=== PATIENT | female | born 1950 | race Caucasian/White ===

== ENCOUNTER 2016-07-13 09:15 | Observation (INO) | payer OTHER ==
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
--- NOTE | 2016-07-13 09:37 | CPEKG ---
Heart Rate: 90 RR Interval: 667 P-R Interval: 168 QRSD Interval: 82 QT Interval: 380 QTC Interval: 465 P [place]: 25 QRS [place]: -6 T Wave [place]: 44 EKG Severity - ABNORMAL ECG - EKG Impression: SINUS RHYTHM EKG Impression: MULTIPLE VENTRICULAR PREMATURE COMPLEXES EKG Impression: LEFT VENTRICULAR HYPERTROPHY Electronically Signed By: Cole Mcdaniel 13-Jul-2016 09:48:48
[2016-07-13 09:55] LABS: % IMMATURE GRANULYOCYTES 0.3 % (0.0-1.1); ABSOLUTE IMMATURE GRANULOCYTES 0.02 10^3/uL (0.00-0.10); ADD DIFF? NO; ADD MORPH? NO; ADD SCAN? NO; ATYPICAL LYMPHOCYTE FLAG 10 (0-99); FRAGMENT RBC FLAG 0 (0-99); HEMATOCRIT 45.5 % (38.0-47.0); HEMOGLOBIN 15.7 g/dL (12.6-16.3); LEFT SHIFT FLG 0 (0-99); LIPEMIA HEMOLYSIS FLAG 90 (0-99); MEAN CELL HEMOGLOBIN 31.7 pg (27.9-34.1); MEAN CELL HEMOGLOBIN CONCENTR. 34.5 g/dL (32.4-36.7); MEAN CELL VOLUME 91.7 fL (81.5-99.8); MEAN PLATELET VOLUME 11.5 fL (8.7-11.7); PLATELET CLUMPS FLAG 10 (0-99); PLATELET COUNT 212 10^3/uL (150-400); RED BLOOD CELL COUNT 4.96 10^6/uL (4.18-5.33); RED CELL DISTRIBUTION WIDTH 12.4 % (11.5-15.2)
[2016-07-13 10:09] LABS: ANION GAP 12 mEq/L (8-16); CALCIUM 9.9 mg/dL (8.5-10.4); CARBON DIOXIDE 26 mEq/l (22-31); CHLORIDE 108 mEq/L (97-110); CREATININE 0.6 mg/dL (0.6-1.0); GLOMERULAR FILTRATION RATE > 60; GLUCOSE 106 mg/dL (70-100); POTASSIUM 4.2 mEq/L (3.5-5.2); SODIUM 146 mEq/L (134-144)
[2016-07-13 10:21] LABS: TROPONIN I < 0.012 ng/mL (0-0.034)
--- NOTE | 2016-07-13 10:48 | DX ---
PA and lateral chest. Clinical History: Chest Pain Comparison Study: None available. Findings: The lungs are clear. No pleural disease identified. Heart size is normal. Degenerative changes are present at the thoracolumbar junction, with mild kyphosis.. Impression: Negative chest.
[2016-07-13] MEDS ORDERED: ACETAMINOPHEN 325 MG TAB PO PRN (12:35)
[2016-07-13] MEDS ORDERED: D5W 1/2 NS 1,000 ML IV SCH (12:45)
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
[2016-07-13] MEDS ORDERED: GADOBUTROL 10 ML VIAL IVP ONE (14:28)
--- NOTE | 2016-07-13 15:32 | MR ---
MR Arteriogram of the [place] Clinical Indications: Evaluate for possible vascular occlusion. R29.818 Neurological changes strongl y suggesting intracerebral aneurysm. Technique: A uiof-rn-rrkzed gradient echo technique was used for thin axial images at the skull base for evaluation of major vessels of the [place]. Three-dimensional technique was used with a 30-degree gradient echo flip angle and a traveling saturation band. Images were manipulated by the radiologist at the computer workstation. Findings: The left posterior cerebral artery arises from the anterior circulation. 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 The anterior and middle cerebral arteries are widely patent. Distal internal carotid arteries are p atent. Distal vertebral arteries are patent as is the basilar artery. No evidence of occlusive vascul ar disease. Impression: 1. 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 2. No evidence of vascular occlusion.
--- NOTE | 2016-07-13 16:05 | MR ---
MRI of the Brain (Without Contrast) 07/13/2016 Clinical Indication: Evaluate for possible prior CVA.. Technique: T1-weighted images were acquired axially and sagittally from the foramen magnum to the ve rtex. Axial FLAIR, fast T2-weighted, and diffusion-weighted axial images were obtained without contr ast. Findings: The ventricles, cisterns, and sulci are normal without atrophy, hydrocephalus, midline tl ft, herniation, or epidural/subdural hematomas. No intracranial hemorrhage or masses. Diffusion-weigh dimple sequence demonstrates no acute infarct. Cerebellar tonsils are in normal position. Pituitary glan d is normal in size. Normal signal flow void in the superior sagittal sinus, basilar artery, and bila teral internal carotid arteries indicating patency. Paranasal sinuses and mastoid air cells are clear . Impression: Normal MRI of the brain without contrast.
--- NOTE | 2016-07-13 16:08 | MR ---
MR Angiogram of the Neck With Contrast Clinical Indications: Evaluate for vascular stenosis. Technique: After a preliminary timing bolus run, a three-dimensional vascular bsdt-ew-ulmljf study w as performed from the upper chest to the skull base, using a total of 10 mL of Gadavist intravenously . Images were manipulated by the radiologist at the computer workstation. Findings: The aortic arch has typical 3-vessel branching anatomy. The common carotid arteries and v ertebral arteries are patent. The common carotid bifurcations demonstrate no evidence of flow-limiti ng stenosis, occlusion, or dissection. Tortuosity of the internal carotid arteries is present bilater ally. The vertebral arteries are patent without evidence of obstruction or dissection. Impression: MRA of the cervical carotids and vertebrals demonstrate no evidence of flow-limiting sten osis, occlusion, or dissection. Measurements of carotid stenosis are based on the residual internal carotid diameter with [facility] Symptomatic Carotid Endarterectomy Trial (NASCET) based stenosis levels.
[2016-07-13] MEDS: ASPIRIN EC 81 MG TAB PO SCH (17:19)
[2016-07-13] MEDS ORDERED: METOPROLOL TARTRATE 25 MG TAB PO ONE (17:39)
[2016-07-13] MEDS ORDERED: hydrALAZINE 20 MG/ML VIAL IVP PRN (20:36)
[2016-07-13] MEDS ORDERED: PRAVASTATIN SODIUM 10 MG PO SCH (21:00)
[2016-07-13] MEDS ORDERED: LISINOPRIL 5 MG PO SCH (21:00)
[2016-07-13] MEDS ORDERED: PRAVASTATIN SODIUM 10 MG TAB PO SCH (21:00)
[2016-07-13] MEDS: LISINOPRIL 5 MG TAB PO SCH (21:08)
[2016-07-13] MEDS: METOPROLOL TARTRATE 25 MG TAB PO SCH (22:19)
[2016-07-14 05:26] LABS: ANION GAP 10 mEq/L (8-16); CARBON DIOXIDE 26 mEq/l (22-31); CHLORIDE 109 mEq/L (97-110); CREATININE 0.6 mg/dL (0.6-1.0); GLOMERULAR FILTRATION RATE > 60; GLUCOSE 91 mg/dL (70-100); MAGNESIUM 1.7 mg/dL (1.6-2.3); SODIUM 145 mEq/L (134-144)
[2016-07-14 05:28] LABS: % IMMATURE GRANULYOCYTES 0.3 % (0.0-1.1); ABSOLUTE IMMATURE GRANULOCYTES 0.02 10^3/uL (0.00-0.10); ADD DIFF? NO; ADD MORPH? NO; ADD SCAN? NO; ATYPICAL LYMPHOCYTE FLAG 0 (0-99); FRAGMENT RBC FLAG 0 (0-99); HEMATOCRIT 47.6 % (38.0-47.0); HEMOGLOBIN 16.5 g/dL (12.6-16.3); LEFT SHIFT FLG 0 (0-99); LIPEMIA HEMOLYSIS FLAG 90 (0-99); MEAN CELL HEMOGLOBIN 31.7 pg (27.9-34.1); MEAN CELL HEMOGLOBIN CONCENTR. 34.7 g/dL (32.4-36.7); MEAN CELL VOLUME 91.4 fL (81.5-99.8); MEAN PLATELET VOLUME 12.1 fL (8.7-11.7); PLATELET CLUMPS FLAG 10 (0-99); PLATELET COUNT 224 10^3/uL (150-400); RED BLOOD CELL COUNT 5.21 10^6/uL (4.18-5.33); RED CELL DISTRIBUTION WIDTH 12.6 % (11.5-15.2)
[2016-07-14] MEDS ORDERED: LEVOTHYROXINE 100 MCG PO SCH (06:00)
[2016-07-14] MEDS ORDERED: LEVOTHYROXINE 100 MCG TAB PO SCH (06:00)
[2016-07-14 08:24] VITALS: RESP 17
[2016-07-14] MEDS: LISINOPRIL 5 MG TAB PO SCH (08:27)
--- NOTE | 2016-07-14 10:17 | ECHO ---
[id number] + + [address] : : [place] [address] : : [phone] + Adult Echocardiographic Report + + :Name: MAHAMED BURT CStudy Date: 07/14/2016 08:02 AM : : Hospital Admission Number: [id number] Loc ation: 141: :: 1950 Gender: Female Height: 61 in : :Age: 65 yrs Race: UN Weight: 138 lb : :Reason For Study: eval for valvular abnormalities : : BSA: 1.6 me ters2 : :History: No previous : + + MMode/2D Measurements & Calculations IVSd: 1.2 cm RVDd: 3.2 cm FS: 31.0 % LVOT diam: 1.9 cm LVPWd: 1.2 cm LVIDd: 4.2 cm EDV(Teich): LVOT area: LVIDs: 2.9 cm 78.1 ml 2.8 cm2 ESV(Teich): 31.9 ml EF(Teich): 59.1 % LVLd ap4: 7.6 cm SV(MOD-sp4): EDV(MOD-sp4): 39.0 ml 69.0 ml LVLs ap4: 6.3 cm ESV(MOD-sp4): 30.0 ml EF(MOD-sp4): 56.5 % Normal Measurement Values: + + :LVIDd (3.5-5.7cm) IVSd (0.6-1.1cm) LVPWd (0.6-1.1cm) Aortic Root (2.0-3.7cm)Left Atrium (1.5-4.0cm): :LV Vol(d) (76-115ml) LV Vol(s) (29-48ml) Ejec Fraction (50-65%)PV Huber (0.6- 1.2m/s) TV Huber (0.4-1.0m/s) : :MV E Huber (0.8-1.0m/s)MV A Huber (0.3-1.0m/s)LVOT Huber (0.7-1.2m/s) Asc Ao Huber ( 0.9-1.8m/s) : + + Doppler Measurements & Calculations MV E max huber: MV V2 max: Ao V2 max: LV V1 max: 52.1 cm/sec 72.1 cm/sec 116.0 cm/sec 79.0 cm/sec MV A max huber: MV max PG: Ao max PG: LV V1 max P.5 cm/sec 2.1 mmHg 5.4 mmHg 2.5 mmHg MV E/A: 0.63 MV V2 mean: Ao mean PG: LV V1 mean PG: MV dec time: 47.4 cm/sec 3.0 mmHg 1.0 mmHg 0.22 sec MV mean PG: Ao V2 mean: LV V1 mean: 1.0 mmHg 75.2 cm/sec 49.1 cm/sec MV V2 VTI: Ao V2 VTI: 24.9 cmLV V1 VTI: 18.1 cm 25.1 cm ZAKIA(I,D): 2.1 cm2 MVA(VTI): 2.0 cm2 ZAKIA(V,D): 1.9 cm2 SV(LVOT): 51.3 ml PA V2 max: TR max huber: Pulm Sys Huber: 62.1 cm/sec 178.0 cm/sec 31.2 cm/sec PA max PG: TR max PG: Pulm Sanchez Huber: 1.5 mmHg 12.7 mmHg 25.3 cm/sec RAP systole: Pulm A Revs Huber: 10.0 mmHg 25.6 cm/sec RVSP(TR): Pulm A Revs Dur: 22.7 mmHg 0.12 sec Pulm S/D: 1.2 Left Ventricle The left ventricle is normal in size and function. There is normal left ventricular wall thickness. Ejection Fraction = 60%. There is Doppler evidence for diastolic dysfunction. No regional wall motion abnormalities noted. Right Ventricle The right ventricle is normal in size and function. Atria The left atrial size is normal. Right atrial size is normal. The interatrial septum is intact with no evidence for an atrial septal defect. Mitral Valve The mitral valve is normal in structure and function. There is no mitral valve stenosis. There is no mitral regurgitation noted. Tricuspid Valve The tricuspid valve is normal in structure and function. There is no tricuspid stenosis. There is trace to mild tricuspid regurgitation. Right ventricular systolic pressure is normal. Aortic Valve The aortic valve is normal in structure and function. There is no aortic stenosis. Mild aortic regurgitation. Pulmonic Valve The pulmonic valve is normal in structure and function. There is no pulmonic valvular stenosis. There is no pulmonic valvular regurgitation. Great Vessels The aortic root is normal size. Pericardium/Pleural There is a fat pad seen. There is no pericardial effusion. Conclusion A complete two-dimensional transthoracic echocardiogram was performed (2D, M-mode, Doppler and color flow Doppler). The left ventricle is normal in size and function. Ejection Fraction = 60%. There is Doppler evidence for diastolic dysfunction. There is trace to mild tricuspid regurgitation. Right ventricular systolic pressure is normal. The aortic valve is normal in structure and function. Mild aortic regurgitation. Final Reading Physician: Curtis Persaud signed on 07/14/2016 10:16 AM Ordering Physician: Finn Cam Performed By: Kirstin Segura
--- NOTE | 2016-07-14 11:18 | NM ---
Nuclear Medicine Myocardial Perfusion Scan Clinical History: 65-year-old female recently admitted with chest pain, a syncopal event, and hyperte nsive urgency. She has had 3 sequential negative serum troponin levels. Rule out myocardial ischemia. Radiopharmaceutical: 10.7 mCi of IV technetium 99m sestamibi (rest portion), and 25.7 of IV technetiu m 99m sestamibi (stress portion). Technique: A Romie protocol exercise tolerance test was performed, with an exercise time of 8 minutes and 31 seconds, achieving a peak heart rate of 144 bpm, which is 92% MPHR. The peak blood pressure i s 170/90, and 9.8 METs were achieved. After the respective rest and stress sequences, images were acq uired tomographically and reconstructed along the standard cardiac axes. Study was gated and reviewed on the PACS computer workstation using [employer] [facility] software. Comparison study: None. Findings: The post-stress and rest sequences normal left ventricular myocardial perfusion with the ex ception of a small fixed defect at the apex, probably representing an apical cleft rather than an inf arct, as there is no corresponding wall motion abnormality. The computer-generated LVEF is calculated at 54%. The left ventricular cavity size is normal. Impression: There is no scintigraphic evidence of myocardial ischemia.
[2016-07-14 11:27] VITALS: BP 145/81; PULSE 74; TEMP 98.1; O2SAT 95
[2016-07-14] MEDS: METOPROLOL TARTRATE 25 MG TAB PO SCH (11:27)
[2016-07-14] MEDS: ASPIRIN EC 81 MG TAB PO SCH (12:23)
--- NOTE | 2016-07-14 17:15 | GDS ---
[f rep st] DISCHARGE SUMMARY DISCHARGE DIAGNOSES: Include: 1. Syncope acute. 2. Chest pain. 3. Hypertensive urgency. 4. Acute dysarthria. 5. Migraines. HISTORY OF PRESENT ILLNESS: A 65-year-old female, who presented with acute syncopal episode and dysa rthria. For details of the patient's initial presentation, please see the history and physical dated 07/13/2016. CONSULTATIVE SERVICES ON THIS PATIENT: Include cardiology. PROCEDURES ON THIS PATIENT: On 07/13/2016, patient had an MRI of the brain that was normal. On 07/02, patient had a transthoracic echocardiogram that showed normal LV size and function, ejection fraction estimated at 60%. On 07/14/2016, patient had a myocardial perfusion scan that showed no paras dence of ischemia. On 07/13/2016, patient had an MRA of the neck and brain that showed no evidence o f flow-limiting stenoses, occlusion or dissection. HOSPITAL COURSE BY ISSUE: 1. Acute syncope. Patient was admitted to the [facility], monitored overnight, thorough cardiac workup wi echo, stress testing and telemetry monitoring. Patient's heart rates remained normal. Blood pres sures trended after initial hospitalization in the 130s to 140s. The patient is being discharged wit h outpatient [facility] followup on 07/15/2016, where they can initiate discussions related to mon itoring with Holter, loop recorders, and additional medications for blood pressure control. 2. Hypertensive urgency. Suspect this may have been related acutely to the stress of her presentati on. She was treated with her home dosing of lisinopril and a single dose of beta-blockade, which cau sed profound bradycardia without much assistance in blood pressure control. This will not be continu ed at disposition as it certainly will complicate patient's presentation with syncope. [facility] will follow her blood pressures post disposition. 3. Acute dysarthria. Patient did have workup for stroke with negative brain MRI, MRA and echo. Lolly pect again this may have been related to the acute syncopal presentation and not a separate cerebrova scular event. 4. Baseline hypertension. As above, the patient will be continued on her home dosing of antihyperte nsives with anticipated titration by [facility] in the outpatient setting. 5. Migraines. No changes were made to her outpatient regimen. MEDICATIONS AT THE TIME OF DISPOSITION: Please reference medication reconciliation printed on 2016. FOLLOWUP APPOINTMENTS: Include with [facility] on 07/15/2016. PENDING STUDIES AT THE TIME OF THIS DICTATION: None. TIME SPENT: I spent greater than 30 minutes in the planning and coordination of this discharge. /[id number]/MODL
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
== END 2016-07-14 13:01 | disposition home or self-care (01) ==
LOC: MERGE 11:22 → F1N 12:21
PROVIDERS: ADMIT Internal Medicine; ATTEND Internal Medicine
DX: R55 Syncope and collapse (principal); R07.9 Chest pain, unspecified; I16.0 Hypertensive urgency; R47.1 Dysarthria and anarthria
CPT/HCPCS: 70544; 70549; 70551; 71020; 93005; G0378; A9585; J0360

== ENCOUNTER → 2016-08-06 | Outpatient (CLI) | payer OTHER ==
--- NOTE | 2016-08-06 15:20 | CPEEG ---
[f rep st] ELECTROENCEPHALOGRAM EEG. DATE OF STUDY: 08/06/2016 DATE OF INTERPRETATION: 08/06/2016 INTERPRETATION: Normal EEG during wakefulness and sleep. There were no potentially epileptogenic a bnormalities present in the recording. REPORT: This EEG contains 10 hertz alpha to the posterior head regions. There was no abnormal acti vation at rest, during photic stimulation or hyperventilation. The patient became drowsy and fell a sleep during the study. There was no abnormal activation during drowsiness, sleep, or during times of arousal. /[id number]/MODL
== END ==
LOC: FCPNEURO 10:46
PROVIDERS: ATTEND Psychiatry & Neurology Neurology
DX: I67.1 Cerebral aneurysm, nonruptured (principal); G43.109 Migraine with aura, not intractable, without status migrainosus; R55 Syncope and collapse

== ENCOUNTER 2016-08-07 13:08 | Day surgery (SDC) | payer OTHER ==
[2016-08-07] MEDS ORDERED: MIDAZOLAM 2 MG/2 ML VIAL ONE (14:42)
[2016-08-07] MEDS ORDERED: fentaNYL 100 MCG/2 ML INJ ONE (14:43)
[2016-08-07] MEDS ORDERED: IOPAMIDOL (ISOVUE-300) 100 ML BTL IV ONE (15:36)
== END 2016-08-07 19:11 | disposition home or self-care (01) ==
LOC: FIMAGING 13:08
PROVIDERS: ATTEND Neurological Surgery
PROC: B31F1ZZ Fluoroscopy of Left Vertebral Artery using Low Osmolar Contrast (ICD-10-PCS; principal; 2016-08-07)
PROC: B3181ZZ Fluoroscopy of Bilateral Internal Carotid Arteries using Low Osmolar Contrast (ICD-10-PCS; principal; 2016-08-07)
PROC: B3151ZZ Fluoroscopy of Bilateral Common Carotid Arteries using Low Osmolar Contrast (ICD-10-PCS; principal; 2016-08-07)
DX: Z03.89 Encounter for observation for other suspected diseases and conditions ruled out (principal); I10 Essential (primary) hypertension
CPT/HCPCS: 36223; 36224; 36226; 99152; C1769; J1644; J2250; J3010; Q9967

== ENCOUNTER 2016-10-06 06:57 | Day surgery (SDC) | payer OTHER, MEDICAID ==
[2016-10-06] MEDS ORDERED: MIDAZOLAM 2 MG/2 ML VIAL IVP ONE (07:07)
[2016-10-06] MEDS ORDERED: NS 1,000 ML IV ONE (07:07)
[2016-10-06] MEDS ORDERED: HEPARIN 10,000 UNIT/10 ML MDV ONE ×2 (07:22→08:00)
[2016-10-06] MEDS ORDERED: LIDOCAINE 1% 30 ML SDV ONE ×2 (07:22→08:00)
[2016-10-06] MEDS ORDERED: ISOPROTERENOL HCL 0.2 MG/ML 5ML AMP ONE ×2 (07:23→08:00)
[2016-10-06] MEDS ORDERED: BUPIVACAINE 0.5% 30 ML SDV ONE ×2 (07:23→08:00)
--- NOTE | 2016-10-06 07:28 | CPEKG ---
Heart Rate: 67 RR Interval: 896 P-R Interval: 180 QRSD Interval: 76 QT Interval: 404 QTC Interval: 427 P [place]: 38 QRS [place]: 16 T Wave [place]: 48 EKG Severity - NORMAL ECG - EKG Impression: SINUS RHYTHM Electronically Signed By: Maico Seay 06-Oct-2016 16:51:21
[2016-10-06 07:47] LABS: ADD DIFF? NO; ADD MORPH? NO; ADD SCAN? NO; ATYPICAL LYMPHOCYTE FLAG 0 (0-99); FRAGMENT RBC FLAG 0 (0-99); HEMATOCRIT 41.9 % (38.0-47.0); HEMOGLOBIN 14.7 g/dL (12.6-16.3); LEFT SHIFT FLG 0 (0-99); LIPEMIA HEMOLYSIS FLAG 90 (0-99); MEAN CELL HEMOGLOBIN 31.4 pg (27.9-34.1); MEAN CELL HEMOGLOBIN CONCENTR. 35.1 g/dL (32.4-36.7); MEAN CELL VOLUME 89.5 fL (81.5-99.8); MEAN PLATELET VOLUME 10.6 fL (8.7-11.7); PLATELET CLUMPS FLAG 0 (0-99); PLATELET COUNT 206 10^3/uL (150-400); RED BLOOD CELL COUNT 4.68 10^6/uL (4.18-5.33); RED CELL DISTRIBUTION WIDTH 12.6 % (11.5-15.2)
[2016-10-06 07:59] LABS: INR 1.01 (0.83-1.16); PROTIME(PATIENT) 13.2 SEC (12.0-15.0)
[2016-10-06 08:00] LABS: APTT 28.8 SEC (23.0-38.0)
[2016-10-06 08:09] LABS: ANION GAP 10 mEq/L (8-16); CALCIUM 9.7 mg/dL (8.5-10.4); CARBON DIOXIDE 27 mEq/l (22-31); CHLORIDE 104 mEq/L (97-110); CREATININE 0.6 mg/dL (0.6-1.0); GLOMERULAR FILTRATION RATE > 60; GLUCOSE 86 mg/dL (70-100); MAGNESIUM 1.9 mg/dL (1.6-2.3); SODIUM 141 mEq/L (134-144)
[2016-10-06] MEDS ORDERED: PROPOFOL/EMULSION 500 MG/50 ML BOTTLE IV ONE (08:55)
[2016-10-06] MEDS ORDERED: fentaNYL 100 MCG/2 ML INJ ONE (08:59)
[2016-10-06] MEDS ORDERED: ONDANSETRON 4 MG/2 ML VIAL IVP PRN (10:41)
--- NOTE | 2016-10-06 10:41 | EPPROC ---
Electrophysiology Procedure Note: DIAGNOSTIC ELECTROPHYSIOLOGIC STUDY Procedures performed: 1. Fluoroscopy 2. EP evaluation with RA/RV/LA pace/record, with arrhythmia induction 3. EP evaluation with RA/RV pace record, insert/reposition catheter, with arrhythmia induction 4. Programmed stimulation + pacing after IV drug LINQ monitor implant INDICATION: Syncope PROCEDURE: Catheters & Anesthesia: The patient arrived in the Electrophysiology Laboratory in the fasting state. The right clavicular region, right groin, & left groin area were prepped & draped in the usual sterile manner. Sedation was administered by Dr. Esposito. Appropriate non-invasive blood pressure, pulse oximetry & end-tidal CO2 monitoring was established. All catheters were placed percutaneously using the modified Seldinger technique , and advanced into position under fluoroscopic guidance. One #7 Afghan deflectable octapolar electrode catheter was advanced to the His-bundle position via the right femoral vein (2mm spacing). One #7 Afghan deflectable catheter with 10 pairs of electrodes was placed via the right femoral vein into the coronary sinus. Programmed stimulation was performed from the right atrium, right ventricle and coronary sinus (left atrium). Parahisian pacing demonstrated VA block. Heparin was administered to keep ACT > 200 seconds. No sustained reentrant tachycardia was induced during programmed stimulation at baseline or during graded doses of isoproterenol up to 4 mcg/min. Ventricular programmed stimulation was performed using standard protocol (2 pacing sites, 2 basic cycle lengths, up to 3 extrastimuli at twice pacing threshold). Ventricular burst pacing and long/short sequence pacing was also performed. LINQ monitor was placed in the usual L parasternal location. SN [id number]. Triggers heart rate <30 bpm, >150 bpm, pause >3 seconds. The catheters were removed. The patient was transferred to the cardiovascular holding area in stable condition. Vascular access sheaths were removed in the holding area. There were no apparent complications. Results: A. Spontaneous Intervals: SCL 820 ms AH 90 ms HV 65 ms B. Antegrade AV ignacia function (decremental pacing) FPERP 450 ms SPERP 400 ms WBB CL 390 ms C. Retrograde AV ignacia function (decremental pacing) VA block CONCLUSIONS 1. Normal sinus and AV node function. 2. No evidence of accesory AV pathway presence. 3. 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 4. Nonsustained atrial tachycardia, up to 3 beats. 5. No sustained arrhythmias induced. 6. No apparent complications. Patient Problems: Problems Problem Status Onset Syncope Acute
[2016-10-06] MEDS ORDERED: ATROPINE SULFATE 1 MG/10 ML SYR ONE (10:48)
[2016-10-06] MEDS ORDERED: KETOROLAC 15 MG/1 ML SDV IVP ONE (12:30)
[2016-10-07] MEDS ORDERED: ASPIRIN 81 MG CHEWABLE TAB PO SCH (09:00)
== END 2016-10-06 17:24 | disposition home or self-care (01) ==
LOC: FCATH 06:57
PROVIDERS: ATTEND Internal Medicine Cardiovascular Disease
DX: R55 Syncope and collapse (principal); I10 Essential (primary) hypertension; E03.9 Hypothyroidism, unspecified
CPT/HCPCS: 33282; 93005; 93620; 93621; 93623; C1731; C1764; J0461; J1644; J1885; J2250; J2704; J3010

== ENCOUNTER → 2017-06-12 | Outpatient (CLI) | payer OTHER | LOC: FIMAGING 09:53 | PROVIDERS: ATTEND Internal Medicine | DX: Z12.31 Encounter for screening mammogram for malignant neoplasm of breast (principal) ==

== ENCOUNTER → 2018-07-22 | Outpatient (CLI) | payer OTHER | LOC: FIMAGING 11:46 | PROVIDERS: ATTEND Internal Medicine | DX: Z12.31 Encounter for screening mammogram for malignant neoplasm of breast (principal) ==